=== PATIENT | female | born 1970 ===

== ENCOUNTER 2018-12-22 14:19 | Emergency (ER) | payer OTHER ==
[~2018-12-22] VITALS: Ht 152.4 cm; Wt 120.0 kg
[2018-12-22] MEDS ORDERED: ASPI81CH PO (14:35)
[2018-12-22] MEDS ORDERED: Lipitor20 MG PO (14:35)
[2018-12-22] MEDS ORDERED: PRED20 PO (14:43)
[2018-12-22] MEDS ORDERED: TRIDERM28.4 GM TOP (14:43)
== END 2018-12-22 14:38 | disposition home or self-care (01) ==
LOC: ER 14:19
DX: L25.9 Unspecified contact dermatitis, unspecified cause (principal); Z79.899 Other long term (current) drug therapy; Z79.82 Long term (current) use of aspirin
CPT/HCPCS: 99282